=== PATIENT | female | born 1960 | race Caucasian/White ===

== ENCOUNTER → 2017-07-25 | Day surgery (SDC) | payer BC ==
[~2017-07-25] MED LIST: Dextrose 5%-0.45% NaCl 1,000 ML IV SCH; Midazolam 1 MG/ML 2 ML SDV IV ONE; Midazolam 1 MG/ML 2 ML SDV ONE; Sodium Chloride 0.9% 10 ML Syringe FLUSH PRN; fentaNYL 100 MCG/2 ML SDV IV ONE; fentaNYL 100 MCG/2 ML SDV ONE
--- NOTE | 2017-07-25 11:04 | OR ---
DATE: 07/25/2017 PROCEDURE: Esophagogastroduodenoscopy and multiple pinch biopsies. INSTRUMENT USED: GIF-Q180 Olympus video panendoscope. PREMEDICATIONS: No oral topical anesthesia used. Fentanyl 100 mcg intravenous, Versed 2 mg intravenous. Nasal O2 cannula. The procedure was done under pulse oximetry, BP recording, and housekeeping manager. INDICATION: The patient with long-standing heartburn as well as abdominal pain, unexplained, and not responsive to medical measures, on acid suppressants. DESCRIPTION OF PROCEDURE: Esophagogastroduodenoscopy is performed for detection of any active erosive lesions. Sanchez esophagus and/or malignancy also under consideration, endoscopic hemostasis therapy if needed. The scope was passed with ease. Adequate visualization of the esophagus was made from proximal to distal areas. No upper esophageal lesions identified. No distal esophageal stricture. No uphill or downhill esophageal varices. No Yareli-Díaz tear. No evidence of erosive esophagitis by [place] criteria. No esophageal polyp or tumor mass identified. Z-line was seen at around 40 cm distal to the oral verge, configuration consistent with grade 1 by ZAP classification. No proximal gastric varices noted. Gastric fundus examination by retroflexion showed no polypoid lesions. No gastric ulcer, malignant mass, or vascular ectasia identified. Duodenal bulb showed no ulcer. Visualized second part of the duodenum was unremarkable. Multiple pinch biopsies were taken from the gastric antrum and proximal body and sent for PyloriTek test for H. pylori, and if negative in an hour, the tissue is to be sent for histopathology. No bleeding was noted from any of the visualized areas at the completion of examination. Photographs were taken of the duodenal bulb, gastric antrum, fundus, and distal esophagus. IMPRESSION: Normal study. The patient tolerated the procedure well. [facility] /[id number]
--- NOTE | 2017-07-25 13:19 | LETTER ---
07/25/2017 JIM Donnelly [facility] [address] [place] [id number] RE: VIBHA GARCIA KARLY : 1960 Dear Ms. Anderson: Ms. Vibha Garcia had esophagogastroduodenoscopy done this morning and she tolerated the procedure well. I herewith send a copy of the endoscopy note and photographs for your review. Famotidine is discontinued, and she is put on omeprazole 20 mg p.o. daily, response to be noted. Thank you. Sincerely, [facility] /[id number]
== END | disposition home or self-care (01) ==
LOC: DL.ENDO 06:34
PROVIDERS: ATTEND Internal Medicine Gastroenterology
DX: R12 Heartburn (principal); K21.9 Gastro-esophageal reflux disease without esophagitis; E78.00 Pure hypercholesterolemia, unspecified; F41.1 Generalized anxiety disorder; F32.9 Major depressive disorder, single episode, unspecified; G89.4 Chronic pain syndrome; M19.90 Unspecified osteoarthritis, unspecified site; Z98.890 Other specified postprocedural states; Z88.5 Allergy status to narcotic agent; Z88.8 Allergy status to other drugs, medicaments and biological substances
CPT/HCPCS: 43239; 87077; J7042; J2250; J3010

== ENCOUNTER 2018-09-18 10:10 | Emergency (ER) | payer BC ==
[2018-09-18] MEDS ORDERED: diphenhydrAMINE 50 MG/ML SDV IVPUSH ONE (10:41)
[2018-09-18] MEDS ORDERED: Lactated Ringers 1,000 ML IV ONE (10:41)
[2018-09-18] MEDS ORDERED: Ketorolac 30 MG/ML SDV IVPUSH ONE (10:41)
[2018-09-18] MEDS ORDERED: Ondansetron 4 MG/2 ML SDV IV ONE (10:41)
--- NOTE | 2018-09-18 10:46 | EDM.PDOC ---
ED HPI GENERAL MEDICAL PROBLEM - General Chief Complaint: Abdominal Pain Stated Complaint: GALL BLADDER Time Seen by Provider: 09/18/18 10:35 Source of Information: Reports: Patient History Limitations: Reports: No Limitations - History of Present Illness INITIAL COMMENTS - FREE TEXT/NARRATIVE: Patient comes emergency Department today with complaints of abdominal pain. Since yesterday she has had worsening area umbilical pain that radiates to her right flank and down into her groin. The pain comes and goes and is very sharp and feels like the pain is moving. She relates that she's never had pain like this before. She has had no surgeries on her abdomen. No fever no chills. Nausea and vomiting. No diarrhea. No black or tarry stools. No hematochezia. She has had no surgeries on her abdomen in the past. She does complain of change in urinary frequency and painful urination. 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: Other (see below) Other Treatments PAVING AND SURFACING LABOURER: essential oils Abdominal Pain Score (Numeric/FACES): 10 - Related Data Allergies Allergy/AdvReac Type Severity Reaction Status Date / Time gabapentin Allergy Other Verified 09/18/18 10:58 codeine AdvReac Anxiety Verified 09/18/18 10:58 Home Meds: Home Meds Calcium Carbonate [Tums Extra Strength] 0.5 tab PO ASDIRECTED PRN 07/22/17 [ History] Oxybutynin [Ditropan XL] 15 mg PO DAILY 07/22/17 [History] buPROPion HCl [Wellbutrin Xl] 300 mg PO DAILY 07/22/17 [History] Acetaminophen [Tylenol Extra Strength] 1,000 mg PO Q4H PRN 09/18/18 [History] Acetaminophen/Diphenhydramine [Tylenol Pm Ex-Strength Caplet] 1 each PO BEDTIME PRN 09/18/18 [History] Past Medical History HEENT History: Reports: Allergic Rhinitis, Impaired Vision, Other (See Below) Other HEENT History: WEARS CORRECTIVE LENS. 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: Musculoskeletal History: Reports: Neck Pain, Chronic Neurological History: Reports: Migraines Psychiatric History: Reports: None Endocrine/Metabolic History: Reports: None Hematologic History: Reports: Blood Transfusion(s) Immunologic History: Reports: None Oncologic (Cancer) History: Reports: None Dermatologic History: Reports: None, Other (See Below) Other Dermatologic History: FEET DRY, CRACKED - Infectious Disease History Infectious Disease History: Reports: Chicken Pox, Influenza, Measles, Rubella - Past Surgical History Head Surgeries/Procedures: Reports: None HEENT Surgical History: Reports: None Cardiovascular Surgical History: Reports: None Respiratory Surgical History: Reports: None GI Surgical History: Reports: Colonoscopy, Other (See Below) Other GI Surgeries/Procedures: S/P INGUINAL HERNIA REPAIR 3 YEARS OF AGE Female Surgical History: Reports: D&C Endocrine Surgical History: Reports: None Neurological Surgical History: Reports: C-Spine Musculoskeletal Surgical History: Reports: Other (See Below) Other Musculoskeletal Surgeries/Procedures:: CERVICAL DISK SURGERY. HAS HAD 3 EPIDURALS TO UPPER NECK Oncologic Surgical History: Reports: None Dermatological Surgical History: Reports: None Social & Family History - Family History Family Medical History: Noncontributory - Tobacco Use Smoking Status *Q: Former Smoker Used Tobacco, but Quit: Yes Month/Year Tobacco Last Used: 2014 - Caffeine Use Caffeine Use: Reports: Coffee Other Caffeine Use: 1.5 CUPS OF COFFEE DAILY - Recreational Drug Use Recreational Drug Use: No ED ROS GENERAL - Review of Systems Review Of Systems: ROS reveals no pertinent complaints other than HPI. ED EXAM, GI/ABD - Physical Exam Exam: See Below Exam Limited By: No Limitations General Appearance: Alert, Anxious, Moderate Distress (Moaning in pain and rolling about the bed) Eyes: Bilateral: EOMI Nose: Normal Inspection Throat/Mouth: Normal Inspection Head: Atraumatic, Normocephalic Respiratory/Chest: No Respiratory Distress, Lungs Clear, No Accessory Muscle Use , Chest Non-Tender Cardiovascular: Normal Peripheral Pulses, Regular Rate, Rhythm, No Edema GI/Abdominal Exam: Soft, No Organomegaly, No Distention, Guarding (Right upper quadrant), Tender (Tender in the right upper quadrant and right lower quadrant) , Abnormal Bowel Sounds (Decreased bowel sounds). No: Rigid, Rebound Back Exam: Normal Inspection Extremities: Normal Inspection, Normal Range of Motion, Non-Tender, Normal Capillary Refill Neurological: Alert, Oriented, Normal Cognition, Normal Gait, No Motor/Sensory Deficits Psychiatric: Normal Affect, Normal Mood Skin Exam: Warm, Dry, Intact, Normal Color Course - Vital Signs Last Recorded V/S: Last Vital Signs Temp 37.0 C 09/18/18 14:00 Pulse 83 09/18/18 14:00 Resp 20 09/18/18 14:00 BP 84/51 L 09/18/18 14:00 Pulse Ox 94 L 09/18/18 14:00 - Orders/Labs/Meds Orders: Active Orders 24 hr Category Date Time Status Peripheral IV Care [RC] . DIRECTED Care 09/18/18 10:41 Active CULTURE BLOOD [BC] Stat Lab 09/18/18 11:29 Received CULTURE BLOOD [BC] Stat Lab 09/18/18 11:33 Received CULTURE URINE [RM] Stat Lab 09/18/18 10:49 Received Lactated Ringers [Ringers, Lactated] 1,000 ml Med 09/18/18 13:15 Active IV ASDIRECTED Sodium Chloride 0.9% [Saline Flush] Med 09/18/18 10:41 Active 10 ml FLUSH ASDIRECTED PRN Blood Culture x2 Reflex Set [OM.PC] Stat Oth 09/18/18 11:09 Ordered Peripheral IV Insertion Adult [OM.PC] Stat Oth 09/18/18 10:41 Ordered Medication Orders Lactated Ringer's (Ringers, Lactated) 1,000 mls @ 250 mls/hr IV ASDIRECTED JENNIFER Last Admin: 09/18/18 13:17 Dose: 250 mls/hr Sodium Chloride (Saline Flush) 10 ml FLUSH ASDIRECTED PRN PRN Reason: Keep Vein Open Last Admin: 09/18/18 14:33 Dose: 10 ml Admin: 09/18/18 13:19 Dose: 10 ml Admin: 09/18/18 12:20 Dose: 10 ml Admin: 09/18/18 11:00 Dose: 10 ml Labs: Laboratory Tests 09/18/18 09/18/18 09/18/18 Range/Units 10:22 10:22 10:22 WBC 23.0 H (5.0-10.0) 10^3/uL RBC 5.08 (4.2-5.4) 10^6/uL Hgb 16.2 H (12.0-16.0) g/dL Hct 47.0 (37.0-47.0) % MCV 92.5 (80-100) fL MCH 31.9 (27.0-34.0) pg MCHC 34.5 (33.0-35.0) g/dL Plt Count 312 (150-450) 10^3/uL Neut % (Auto) 84.2 H (42.2-75.2) % Lymph % (Auto) 7.4 L (20.5-50.1) % Cocke % (Auto) 7.5 (2-8) % Eos % (Auto) 0.7 L (1.0-3.0) % Baso % (Auto) 0.2 (0.0-1.0) % Sodium 139 (135-145) mmol/L Potassium 3.9 (3.6-5.0) mmol/L Chloride 105 (101-111) mmol/L Carbon Dioxide 19.0 L (21.0-31.0) mmol/L Anion Gap 18.9 BUN 13 (7-18) mg/dL Creatinine 1.0 (0.6-1.3) mg/dL Est Cr Clr Drug Dosing 46.27 mL/min Estimated GFR (MDRD) 57 BUN/Creatinine Ratio 13.00 Glucose 101 (74-105) mg/dL Lactic Acid (0.5-2.2) mmol/L Calcium 9.8 (8.4-10.2) mg/dl Total Bilirubin 0.5 (0.2-1.0) mg/dL AST 31 (10-42) IU/L ALT 35 (10-60) IU/L Alkaline Phosphatase 44 (42-121) IU/L C-Reactive Protein 0.9 (0.0-1.3) mg/dL Total Protein 8.1 (6.7-8.2) g/dl Albumin 5.0 (3.2-5.5) g/dl Globulin 3.1 Albumin/Globulin Ratio 1.61 Lipase 23 (22-51) U/L Urine Color (YELLOW) Urine Appearance (CLEAR) Urine pH (5.0-9.0) Ur Specific [place] (1.005-1.030) Urine Protein (NEGATIVE) Urine Glucose (UA) (NEGATIVE) Urine Ketones (NEGATIVE) Urine Occult Blood (NEGATIVE) Urine Nitrite (NEGATIVE) Urine Bilirubin (NEGATIVE) Urine Urobilinogen (0.2-1.0) mg/dL Ur Leukocyte Esterase (NEGATIVE) Urine RBC /HPF Urine WBC (0-5/HPF) /HPF Ur Epithelial Cells /HPF Urine Bacteria (0-FEW/HPF) /HPF Urine Mucus /LPF 09/18/18 09/18/18 09/18/18 Range/Units 10:49 11:29 15:05 WBC 12.1 H (5.0-10.0) 10^3/uL RBC 4.04 L (4.2-5.4) 10^6/uL Hgb 12.7 D (12.0-16.0) g/dL Hct 37.8 (37.0-47.0) % MCV 93.6 (80-100) fL MCH 31.4 (27.0-34.0) pg MCHC 33.6 (33.0-35.0) g/dL Plt Count 226 D (150-450) 10^3/uL Neut % (Auto) 76.5 H (42.2-75.2) % Lymph % (Auto) 16.5 L (20.5-50.1) % Coc[place] % (Auto) 5.4 (2-8) % Eos % (Auto) 1.4 (1.0-3.0) % Baso % (Auto) 0.2 (0.0-1.0) % Sodium (135-145) mmol/L Potassium (3.6-5.0) mmol/L Chloride (101-111) mmol/L Carbon Dioxide (21.0-31.0) mmol/L Anion Gap BUN (7-18) mg/dL Creatinine (0.6-1.3) mg/dL Est Cr Clr Drug Dosing mL/min Estimated GFR (MDRD) BUN/Creatinine Ratio Glucose (74-105) mg/dL Lactic Acid 2.0 (0.5-2.2) mmol/L Calcium (8.4-10.2) mg/dl Total Bilirubin (0.2-1.0) mg/dL AST (10-42) IU/L ALT (10-60) IU/L Alkaline Phosphatase (42-121) IU/L C-Reactive Protein (0.0-1.3) mg/dL Total Protein (6.7-8.2) g/dl Albumin (3.2-5.5) g/dl Globulin Albumin/Globulin Ratio Lipase (22-51) U/L Urine Color Yellow (YELLOW) Urine Appearance Clear (CLEAR) Urine pH 6.0 (5.0-9.0) Ur Specific [place] 1.015 (1.005-1.030) Urine Protein Negative (NEGATIVE) Urine Glucose (UA) Negative (NEGATIVE) Urine Ketones Negative (NEGATIVE) Urine Occult Blood Trace-intact H (NEGATIVE) Urine Nitrite Negative (NEGATIVE) Urine Bilirubin Negative (NEGATIVE) Urine Urobilinogen 0.2 (0.2-1.0) mg/dL Ur Leukocyte Esterase Small H (NEGATIVE) Urine RBC 0-5 /HPF Urine WBC 0-5 (0-5/HPF) /HPF Ur Epithelial Cells Rare /HPF Urine Bacteria Rare (0-FEW/HPF) /HPF Urine Mucus Rare /LPF Meds: Medications Generic Name Dose Route Start Last Admin Trade Name Keenanq PRN Reason Stop Dose Admin Lactated Ringer's 1,000 mls @ 250 mls/hr 09/18/18 13:15 09/18/18 13:17 Ringers, Lactated IV 250 mls/hr ASDIRECTED JENNIFER Administration Sodium Chloride 10 ml 09/18/18 10:41 09/18/18 14:33 Saline Flush FLUSH 10 ml ASDIRECTED PRN Administration Keep Vein Open Discontinued Medications Generic Name Dose Route Start Last Admin Trade Name Keenanq PRN Reason Stop Dose Admin Diphenhydramine HCl 25 mg 09/18/18 10:41 09/18/18 11:14 Benadryl IVPUSH 09/18/18 10:42 25 mg ONETIME ONE Administration Hydromorphone HCl 0.5 mg 09/18/18 12:14 09/18/18 12:20 Dilaudid IVPUSH 09/18/18 12:15 0.5 mg ONETIME ONE Administration Lactated Ringer's 1,000 mls @ 1,000 mls/hr 09/18/18 10:41 09/18/18 12:10 Ringers, Lactated IV 09/18/18 11:40 Infused .BOLUS ONE Infusion Iopamidol 75 ml 09/18/18 14:42 09/18/18 14:30 Isovue-300 (61%) IVPUSH 09/18/18 14:43 75 ml ONETIME ONE Administration Ketorolac Tromethamine 30 mg 09/18/18 10:41 09/18/18 10:58 Toradol IVPUSH 09/18/18 10:42 30 mg ONETIME ONE Administration Ondansetron HCl 4 mg 09/18/18 10:41 09/18/18 10:59 Zofran IV 09/18/18 10:42 4 mg ONETIME ONE Administration - Radiology Interpretation Free Text/Narrative:: Ultrasound right upper quadrant negative gallbladder and liver dilated pancreatic duct? CT scan of the abdomen no sign of pancreatic mass edema or ductal dilation. Some diverticula without any diverticulitis. Appendix is normal large volume of stool in the ascending right colon. - Re-Assessments/Exams Free Text/Narrative Re-Assessment/Exam: 09/18/18 10:45 IV LR 1 L wide open. Ketorolac 30 mg IV push. Benadryl 25 mg IV push. Zofran 4 mg IV push. 09/18/18 11:42 Her pain is quite a bit better after the above therapy. Her nausea has improved and resolved. Reexamination of the abdomen still shows a soft nondistended abdomen although she clearly has right upper quadrant sign with a positive Mora sign. No right lower quadrant pain or tenderness she has not had anything to eat since she got up this morning. We will ultrasound her gallbladder for concerns for acute cholecystitis with her quite elevated white blood cell count of 23. 09/18/18 14:13 Gallbladder US negative for Acute Renetta, pain returning dilaudid with improvement. Will complete a CT scan with the quite elevated WBC. 09/18/18 15:21 The patient remains pain-free after the above therapy. The rather unremarkable CT scan of abdomen the large volume of stool in the right ascending colon. Her white count is actually back to almost normal at 21. We will treat her for some constipation see if her symptomology resolves. If she has any new or worsening symptoms or she is not improving she needs to recheck. She is comfortable- with this plan and her questions are answered. Departure - Departure Time of Disposition: 15:22 Disposition: Home, Self-Care 01 Clinical Impression: Abdominal pain Qualifiers: Abdominal location: right upper quadrant Qualified Code(s): R10.11 - Right upper quadrant pain Constipation Qualifiers: Constipation type: unspecified constipation type Qualified Code(s): K59.00 - Constipation, unspecified - Discharge Information Instructions: Abdominal Pain, Adult, [id number], Constipation, Adult, Easy-to -Read Forms: ED Department Discharge Additional Instructions: Increase fluids over the next few days. Start with OTC Miralax today. 2 capfuls in 2 large glasses of water when you get home. Then tomorrow 1 capful daily with a large glass of water and increase by 1 capful every 2 days until easy smooth bowel movements. i.e. in 2 days 2 capfuls, 4 days 3 capful etc. Return to the ED if new or worsening symptoms. Follow up with PCP in 1 week if not improving sooner if worse consider a HIDA scan at that time of gallbladder. - My Orders Last 24 Hours: My Active Orders 09/18/18 10:41 Peripheral IV Care [RC] . DIRECTED Sodium Chloride 0.9% [Saline Flush] 10 ml FLUSH ASDIRECTED PRN Peripheral IV Insertion Adult [OM.PC] Stat 09/18/18 10:49 CULTURE URINE [RM] Stat 09/18/18 11:09 Blood Culture x2 Reflex Set [OM.PC] Stat 09/18/18 11:29 CULTURE BLOOD [BC] Stat 09/18/18 11:33 CULTURE BLOOD [BC] Stat 09/18/18 13:15 Lactated Ringers [Ringers, Lactated] 1,000 ml IV ASDIRECTED - Assessment/Plan Last 24 Hours: My Active Orders 09/18/18 10:41 Peripheral IV Care [RC] . DIRECTED Sodium Chloride 0.9% [Saline Flush] 10 ml FLUSH ASDIRECTED PRN Peripheral IV Insertion Adult [OM.PC] Stat 09/18/18 10:49 CULTURE URINE [RM] Stat 09/18/18 11:09 Blood Culture x2 Reflex Set [OM.PC] Stat 09/18/18 11:29 CULTURE BLOOD [BC] Stat 09/18/18 11:33 CULTURE BLOOD [BC] Stat 09/18/18 13:15 Lactated Ringers [Ringers, Lactated] 1,000 ml IV ASDIRECTED Assessment:: abd pain, ? if from constipation. constipation Leukocytosis resolved while in the ED without any intervention ? if from pain or stress. normal CRP. Plan: Increase fluids over the next few days. Start with OTC Miralax today. 2 capfuls in 2 large glasses of water when you get home. Then tomorrow 1 capful daily with a large glass of water and increase by 1 capful every 2 days until easy smooth bowel movements. i.e. in 2 days 2 capfuls, 4 days 3 capful etc. Return to the ED if new or worsening symptoms. Follow up with PCP in 1 week if not improving sooner if worse consider a HIDA scan at that time of gallbladder.
[2018-09-18] MEDS: Sodium Chloride 0.9% 10 ML Syringe FLUSH PRN ×4 (11:00→14:33)
[2018-09-18 11:01] LABS: ANION GAP 18.9
[2018-09-18] MEDS ORDERED: HYDROmorphone 1 MG/ML Syringe IVPUSH ONE (12:14)
[2018-09-18] MEDS ORDERED: Lactated Ringers 1,000 ML IV SCH (13:15)
--- NOTE | 2018-09-18 14:26 | US ---
Clinical history: 58-year-old female with right upper quadrant pain and leukocytosis (WBC 23,000). Interpretation: 1. Gallbladder clearing demonstrated in the right upper quadrant beneath the liver margin is normal size anatomic configuration with uniformly thin wall. No pericystic fluid, abnormal gallbladder wall thickening, mucosal polyp or mobile dependent intraluminal echogenic "shadowing" gallstones. 2. Homogeneous normal sono density of the liver without sign discrete intrahepatic mass intra-extrahepatic biliary duct dilatation. (Common bile duct 5 mm diameter). 3. Pancreas normal size, anatomic configuration and homogeneous density without sign of discrete mass, edema or peripancreatic pseudocyst. Note: Major pancreatic duct ([place]) is prominent measuring 3 mm in diameter (normal range 1-3.5 mm) body of the pancreas. No pancreatic mass or edema and no obvious intraductal "shadowing" calcifications. Pancreatic enzymes? Suggest CT scan of the pancreas and epigastrium to include the kidneys may prove helpful. 4. No ascites. 5. Normal appearance right kidney. Upper abdominal aorta unremarkable. CONCLUSION: Negative gallbladder and liver. See comments regarding major duct of the otherwise normal pancreas (above).
[2018-09-18] MEDS ORDERED: Iopamidol 612 MG/ML 75 ML Bottle IVPUSH ONE (14:42)
--- NOTE | 2018-09-18 15:14 | CT ---
Clinical history: 58-year-old female smoker in the emergency department with right upper quadrant pain ("normal gallbladder" sonogram) and leukocytosis (WBC 23,000). No known trauma; "prominent" major pancreatic duct. (Normal pancreatic enzymes) Scan technique: Volume acquisition of data from the abdomen and pelvis obtained without oral contrast but during the intravenous administration of 75 cc nonionic Isovue contrast while the patient was lying supine on the Siemens multi slice scanner [place], [place]. All data archived in the PACS system for storage, reformatting axial/sagittal/coronal planes and study. Interpretation: Negative exam. 1. No sign of pancreatic mass, edema or abnormal major/minor pancreatic duct dilatation (3.0 mm). No pancreatic calcifications. 2. Normal gallbladder liver and spleen. Normal caliber abdominal aorta. 3. Symmetric normal reniform size, axis and configuration. No perinephric inflammation, renal cortical mass, signs of urolithiasis or obstructive uropathy. Symmetrically distended normal appearing urinary bladder. Midline uterus. 4. A few diverticula in the sigmoid colon without associated signs of inflammation. Appendix unremarkable (RLQ). 5. Large volume of stool in ascending right colon. No abdominal or pelvic mass lesion, inflammatory "dirty" peritoneal fat, signs of mechanical bowel obstruction, ascites or free intraperitoneal air. No ventral wall or inguinal hernias. 6. Lung bases clear.
== END 2018-09-18 15:42 | disposition home or self-care (01) ==
LOC: DL.ED 10:10
DX: K59.00 Constipation, unspecified (principal); N18.3 Chronic kidney disease, stage 3 (moderate); Z79.899 Other long term (current) drug therapy; Z88.8 Allergy status to other drugs, medicaments and biological substances; Z87.891 Personal history of nicotine dependence; Z88.5 Allergy status to narcotic agent
CPT/HCPCS: 36415; 74177; 76705; 80053; 81001; 83605; 83690; 85025; 86140; 87040; 87086; 87088; 87186; 96361; 96374; 96375; 99284; J1170; J1200; J1885; J2405; J7120; Q9967

== ENCOUNTER 2024-01-02 15:27 | Emergency (ER) | payer BC ==
[2024-01-02] MEDS ORDERED: Sodium Chloride 0.9% 1,000 ML IV ONE (16:00)
== END 2024-01-02 16:08 | disposition left against medical advice (07) ==
LOC: DL.ED 15:27
DX: G43.909 Migraine, unspecified, not intractable, without status migrainosus (principal); E86.9 Volume depletion, unspecified; N18.9 Chronic kidney disease, unspecified; Z79.899 Other long term (current) drug therapy; Z88.5 Allergy status to narcotic agent; Z88.8 Allergy status to other drugs, medicaments and biological substances
CPT/HCPCS: 99283